=== PATIENT | male | born 1950 | race Caucasian/White ===

== ENCOUNTER → 2022-02-25 | Day surgery (SDC) | payer MEDICARE ==
[~2022-02-25] VITALS: Ht 172.7 cm; Wt 68.0 kg
[~2022-02-25] MED LIST: DALVANCE500 MG IV; GOOD SENSE ASP325 MG PO; LEVOFLOXACIN750 M2 PO; LIPITOR10 MG PO; METFORMIN HYDR500 MG PO; METRONIDAZOLE500 M1 PO
[2022-02-25 09:45] VITALS: BP 146/87
[2022-02-25 11:49] VITALS: BP 112/62
[2022-02-25 12:03] VITALS: BP 121/78
== END | disposition home or self-care (01) ==
LOC: SDC 02-22 11:00
PROVIDERS: ATTEND Surgery
DX: Z12.11 Encounter for screening for malignant neoplasm of colon (principal); K63.5 Polyp of colon; E11.9 Type 2 diabetes mellitus without complications; F17.210 Nicotine dependence, cigarettes, uncomplicated; Z79.899 Other long term (current) drug therapy

== ENCOUNTER → 2022-08-19 | Outpatient (CLI) | payer MEDICARE ==
[2022-08-19 10:39] LABS: BASO # 0.1 10*3/uL (0.0-0.1); BASO % 0.9 % (0.0-1.0); EOS # 0.3 10*3/uL (0.0-0.4); EOS % 2.5 % (1.0-4.0); HEMATOCRIT 41.1 % (42.0-52.0); LYMPH # 4.5 10*3/uL (1.3-4.4); LYMPH % 37.1 % (27.0-41.0); MEAN CELL VOLUME 87.1 fl (80.0-94.0); MEAN CORPUSCULAR HGB CONC 33.3 g/dl (33.0-37.0); MEAN PLATELET VOLUME 10.8 fl (9.6-12.3); MONO % 7.8 % (3.0-9.0); NEUT # 6.3 10*3/uL (2.3-7.9); NEUT % 51.3 % (47.0-73.0); PLATELET COUNT AUTOMATED 360 10*3/uL (130-400); RED BLOOD COUNT 4.72 10*6/uL (4.50-5.90); RED CELL DISTRI WIDTH 12.6 % (0-14.5); WHITE BLOOD COUNT 12.2 10*3/uL (4.8-10.8)
[2022-08-19 11:03] LABS: ALKALINE PHOSPHATASE 94 U/L (46-116); BUN 10 mg/dl (9-23); CHLORIDE 100 mmol/L (98-107); CHOLESTEROL 138 mg/dL (<200); FREE T4 1.26 ng/dl (0.89-1.76); LDL CHOLESTEROL 61 mg/dL (9-159); SGPT/ALT 11 U/L (10-49); THYROID STIM HORMONE (HS) 4.194 uIU/ml (0.550-4.780); TOTAL PROTEIN 8.1 gm/dL (6.0-8.0); TRIGLYCERIDES 154 mg/dl (<150)
[2022-08-19 12:02] LABS: VITAMIN D, 25-HYDROXY 85.5 ng/mL (30-100)
== END ==
LOC: LAB 09:43
PROVIDERS: ATTEND Internal Medicine
DX: E11.9 Type 2 diabetes mellitus without complications (principal); J43.2 Centrilobular emphysema; E78.2 Mixed hyperlipidemia; F17.210 Nicotine dependence, cigarettes, uncomplicated; R53.81 Other malaise; R79.89 Other specified abnormal findings of blood chemistry; E55.9 Vitamin D deficiency, unspecified; D51.9 Vitamin B12 deficiency anemia, unspecified; E03.9 Hypothyroidism, unspecified; D52.9 Folate deficiency anemia, unspecified; Z13.0 Encounter for screening for diseases of the blood and blood-forming organs and certain disorders involving the immune mechanism; Z13.1 Encounter for screening for diabetes mellitus; Z13.21 Encounter for screening for nutritional disorder; Z13.220 Encounter for screening for lipoid disorders; Z13.228 Encounter for screening for other metabolic disorders; E11.8 Type 2 diabetes mellitus with unspecified complications

== ENCOUNTER → 2022-10-14 | Outpatient (CLI) | payer MEDICARE | END | disposition home or self-care (01) | LOC: CT 10-08 11:00 | PROVIDERS: ATTEND Internal Medicine | DX: Z01.812 Encounter for preprocedural laboratory examination (principal); J43.9 Emphysema, unspecified; J84.10 Pulmonary fibrosis, unspecified; I25.10 Atherosclerotic heart disease of native coronary artery without angina pectoris; K80.20 Calculus of gallbladder without cholecystitis without obstruction; R91.1 Solitary pulmonary nodule; J47.9 Bronchiectasis, uncomplicated ==

== ENCOUNTER → 2024-05-07 | Outpatient (CLI) | payer MEDICARE ==
[2024-05-07 09:50] LABS: BASO # 0.1 10*3/uL (0.0-0.1); BASO % 0.7 % (0.0-1.0); EOS # 0.2 10*3/uL (0.0-0.4); EOS % 1.5 % (1.0-4.0); HEMATOCRIT 39.4 % (42.0-52.0); MEAN CELL VOLUME 86.2 fl (80.0-94.0); MEAN CORPUSCULAR HGB 27.8 pg (27.0-31.0); MEAN CORPUSCULAR HGB CONC 32.2 g/dl (33.0-37.0); MEAN PLATELET VOLUME 9.4 fl (9.6-12.3); NEUT # 7.2 10*3/uL (2.3-7.9); PLATELET COUNT AUTOMATED 410 10*3/uL (130-400); RED BLOOD COUNT 4.57 10*6/uL (4.50-5.90); WHITE BLOOD COUNT 11.9 10*3/uL (4.8-10.8)
[2024-05-07 10:33] LABS: ALKALINE PHOSPHATASE 90 U/L (46-116); BUN 10 mg/dl (9-23); CHLORIDE 100 mmol/L (98-107); CHOLESTEROL 148 mg/dL (<200); FREE T4 1.22 ng/dl (0.89-1.76); LDL CHOLESTEROL 77 mg/dL (9-159); POTASSIUM 4.3 mmol/L (3.4-5.1); SGPT/ALT 19 U/L (5-49); TOTAL PROTEIN 8.1 gm/dL (6.0-8.0); TRIGLYCERIDES 147 mg/dl (<150)
[2024-05-07 10:34] LABS: VITAMIN D, 25-HYDROXY 103.7 ng/mL (30-100)
== END | disposition home or self-care (01) ==
LOC: LAB 09:25
PROVIDERS: ATTEND Internal Medicine
DX: Z12.5 Encounter for screening for malignant neoplasm of prostate (principal); I10 Essential (primary) hypertension; R79.82 Elevated C-reactive protein (CRP); E78.2 Mixed hyperlipidemia; E11.65 Type 2 diabetes mellitus with hyperglycemia; E55.9 Vitamin D deficiency, unspecified; F17.210 Nicotine dependence, cigarettes, uncomplicated; E53.9 Vitamin B deficiency, unspecified

== ENCOUNTER → 2025-04-23 | Outpatient (CLI) | payer MEDICARE ==
[2025-04-23 11:14] LABS: BASO # 0.1 10*3/uL (0.0-0.1); BASO % 0.9 % (0.0-1.0); EOS # 0.7 10*3/uL (0.0-0.4); EOS % 5.5 % (1.0-4.0); MEAN CELL VOLUME 84.7 fl (80.0-94.0); MEAN CORPUSCULAR HGB 26.9 pg (27.0-31.0); MEAN PLATELET VOLUME 9.9 fl (9.6-12.3); MONO # 1.2 10*3/uL (0.1-1.0); MONO % 9.4 % (3.0-9.0); NEUT # 6.3 10*3/uL (2.3-7.9); NEUT % 49.8 % (47.0-73.0); NUCLEATED RED BLOOD CELL 0.0 % (0.0-0.0); NUCLEATED RED BLOOD CELL 0.0 10*3/uL (0.0-0.0); PLATELET COUNT AUTOMATED 365 10*3/uL (130-400); RED CELL DISTRI WIDTH 14.5 % (0-14.5)
[2025-04-23 12:14] LABS: VITAMIN D, 25-HYDROXY 55.1 ng/mL (30-100)
[2025-04-23 12:15] LABS: BUN 11 mg/dl (9-23); FREE T4 1.35 ng/dl (0.89-1.76); LDL CHOLESTEROL 59 mg/dL (9-159); SGPT/ALT 16 U/L (5-49)
== END | disposition home or self-care (01) ==
LOC: LAB 10:49
PROVIDERS: ATTEND Internal Medicine
DX: Z12.5 Encounter for screening for malignant neoplasm of prostate (principal); E78.2 Mixed hyperlipidemia; E11.65 Type 2 diabetes mellitus with hyperglycemia; E11.40 Type 2 diabetes mellitus with diabetic neuropathy, unspecified; F17.210 Nicotine dependence, cigarettes, uncomplicated; R97.20 Elevated prostate specific antigen [PSA]; E53.9 Vitamin B deficiency, unspecified; E55.9 Vitamin D deficiency, unspecified; I10 Essential (primary) hypertension; R53.83 Other fatigue